=== PATIENT | male | born 2000 | race Asian ===

== ENCOUNTER 2020-11-06 03:42 | Inpatient (IN) | payer SELFPAY ==
[2020-11-06] MEDS ORDERED: fentaNYL Citrate/PF 50 MCG/ML (20ML VIAL) ONE (04:05)
[2020-11-06 04:22] LABS: #Basophils 0.1 10x3/uL (0.0-0.2); #Monocytes 0.8 10x3/uL (0.0-1.1); #Neutrophils 5.3 10x3/uL (1.5-8.4); %Basophils 0.5 % (0.0-2.0); %Eosinophils 0.3 % (0.0-6.0); %Lymphocytes 38.1 % (18.0-47.0); %Monocytes 8.1 % (0.0-10.0); %Neutrophils 52.8 % (40.0-75.0); Hemoglobin 14.2 g/dL (13.5-17.5); Mean Corpuscular Hemoglobin 28.8 pg (27.0-33.0); Mean Corpuscular Volume 84.8 fl (81.2-95.1); Mean Platelet Volume 10.8 fl (7.4-10.4); Platelet Count 200 10x3/uL (150-450); RBC Distribution Width 12.1 % (11.5-14.5); Red Blood Cell (RBC) Count 4.93 10x6/uL (4.32-5.72); White Blood Cell (WBC) Count 10.1 10x3/uL (3.5-10.5)
[2020-11-06 04:28] LABS: Acetaminophen Less than 6.0 mcg/mL (10.0-30.0); Alcohol 207 mg/dL (Less than 10); Salicylate Less than 8.0 mg/dL (15.0-30.0)
[2020-11-06 04:29] LABS: ALT (SGPT) 23 U/L (8-55); AST (SGOT) 27 U/L (5-34); Albumin 4.6 g/dL (3.5-5.0); Alkaline Phosphatase 82 U/L (50-130); Anion Gap 16 mmol/L (10-20); BUN (Urea Nitrogen) 19 mg/dL (8.9-20.6); Bilirubin, Total 0.3 mg/dL (0.2-1.2); Calc. Creatinine Clearance 0 mL/min (70-130); Calcium 8.7 mg/dL (7.8-10.44); Carbon Dioxide 21 mmol/L (22-29); Chloride 102 mmol/L (98-107); Globulin 2.4 g/dL (2.4-3.5); Glucose 141 mg/dL (70-105); Potassium 3.3 mmol/L (3.5-5.1); Sodium 136 mmol/L (136-145)
[2020-11-06 04:55] LABS: Actual Bicarbonate (HCO3a) 22.8 mEq/L (22-28); Base Excess (BEa) -2.2 mEq/L (-2.0 to +3.0); CO2 Tension 39.8 mmHg (35.0-45.0); Calcium, Ionized (arterial) 1.13 mmol/L (1.12-1.30); Carboxyhemoglobin (COHb) 0.1 gm% (0.0-3.0); Hemoglobin (Hb) 13.6 g/dL (14.0-18.0); O2 Tension (PaO2), arterial 513.5 mmHg (80.0-100.0); Puncture Site RRA; pH, Arterial 7.38 (7.35-7.45)
[2020-11-06] MEDS ORDERED: Boostrix 0.5 ML (Tdap) VIAL ONE (05:27)
[2020-11-06] MEDS ORDERED: Acetaminophen 325 MG TAB PO PRN (05:31)
[2020-11-06] MEDS ORDERED: Ondansetron PF 4 MG/2 ML Vial IVP PRN (05:31)
[2020-11-06] MEDS ORDERED: Lactated Ringer's 1,000 ML IV SCH (05:45)
[2020-11-06] MEDS ORDERED: NS 0.9% w/ 40 MEQ KCL 1,000 ML IV SCH (05:45)
[2020-11-06 05:57] LABS: CK (CPK) 1070 U/L (30-200); Magnesium 2.2 mg/dL (1.7-2.2); Phosphorus 3.2 mg/dL (2.3-4.7)
[2020-11-06 06:37] LABS: SARS-CoV-2 NAA Rapid Test Not Detected (NotDetected)
[2020-11-06 06:43] LABS: Bilirubin Neg (Negative); Blood, Urine Negative (Negative); Clarity Clear (Clear); Glucose, Urine (Dipstick) Normal (Negative); Ketone, Urine 5 mg/dL (Negative); Leukocyte Negative (Negative); Nitrite Negative (Negative); Protein, Urine (Dipstick) 15 mg/dl (Neg-Trace); Specific Gravity, Urine 1.025 (1.002-1.036); Urobilinogen Normal mg/dL (Less than 2)
[2020-11-06 06:52] LABS: Amphetamine Not Detected (NotDetected); Barbiturates Screen Not Detected (NotDetected); Benzodiazepine Screen Not Detected (NotDetected); Cocaine Metabolite Screen Not Detected (NotDetected); Methadone Not Detected (NotDetected); Methamphetamine Not Detected (NotDetected); Opiate Screen Not Detected (NotDetected); Oxycodone Screen Not Detected (NotDetected); Phencyclidine (PCP) Not Detected (NotDetected); THC/Cannabinoid Screen Not Detected (NotDetected); Tricyclic Screen Not Detected (NotDetected)
[2020-11-06] MEDS: Fentanyl CADD 100 ML ONE ×2 (06:52→07:00)
[2020-11-06 07:22] VITALS: BMI 20.5
[2020-11-06] MEDS ORDERED: Potassium Chloride 20 MEQ in Premix Bag 1 BAG IVPB SCH (07:30)
[2020-11-06] MEDS: NS 0.9% w/ 40 MEQ KCL 1,000 ML IV SCH ×2 (07:56→16:20)
[2020-11-06] MEDS: Famotidine/PF 20 mg/2ml Vial SLOW IVP SCH ×2 (07:56→20:58)
[2020-11-06] MEDS: Potassium Chloride 10 MEQ in Premix Bag 1 BAG IVPB SCH (07:58)
[2020-11-06] MEDS ORDERED: Dexmedetomidine In 0.9 % NaCl 100 ML IVPB SCH (12:15)
[2020-11-06] MEDS ORDERED: Dextrose 5 %-0.45 % NaCl 1,000 ML ONE (20:56)
[2020-11-06] MEDS ORDERED: Enoxaparin Sodium 40 MG/0.4 ML SYRINGE SC SCH (21:00)
[2020-11-06] MEDS ORDERED: Multivitamins, Adult 10 ML, Folic Acid 1 MG in Dextrose 5 %-0.45 % NaCl 1,000 ML IV SCH (21:00)
[2020-11-06] MEDS ORDERED: Thiamine HCl 200 MG/2 ML VIAL SLOW IVP SCH (21:00)
[2020-11-07] MEDS ORDERED: Thiamine HCl 200 MG/2 ML VIAL ONE (01:45)
[2020-11-07] MEDS ORDERED: Multivit, Adult Inj 10 ML VIAL ONE (01:46)
[2020-11-07] MEDS: NS 0.9% w/ 40 MEQ KCL 1,000 ML IV SCH (04:17)
[2020-11-07 06:01] LABS: #Monocytes 1.3 10x3/uL (0.0-1.1); %Basophils 0.3 % (0.0-2.0); %Eosinophils 0.4 % (0.0-6.0); %Lymphocytes 24.2 % (18.0-47.0); %Monocytes 11.7 % (0.0-10.0); %Neutrophils 63.1 % (40.0-75.0); Anion Gap 12 mmol/L (10-20); BUN (Urea Nitrogen) 10 mg/dL (8.9-20.6); CK (CPK) 1035 U/L (30-200); Calc. Creatinine Clearance 96 mL/min (70-130); Calcium 8.7 mg/dL (7.8-10.44); Carbon Dioxide 25 mmol/L (22-29); Chloride 106 mmol/L (98-107); Glucose 100 mg/dL (70-105); Hemoglobin 13.8 g/dL (13.5-17.5); Mean Corpuscular HGB CONC 33.6 g/dL (32.0-36.0); Mean Corpuscular Hemoglobin 28.9 pg (27.0-33.0); Mean Platelet Volume 10.5 fl (7.4-10.4); Platelet Count 169 10x3/uL (150-450); Potassium 3.6 mmol/L (3.5-5.1); Red Blood Cell (RBC) Count 4.78 10x6/uL (4.32-5.72); Sodium 139 mmol/L (136-145); White Blood Cell (WBC) Count 11.1 10x3/uL (3.5-10.5)
[2020-11-07] MEDS: Famotidine/PF 20 mg/2ml Vial SLOW IVP SCH (09:43)
[2020-11-07 14:05] VITALS: BP 107/59; TEMP 98.2
== END 2020-11-07 13:44 | disposition home or self-care (01) | DRG 208 ==
LOC: CSHERS 03:42 → CSHIMCU 06:31 → CSHTELE 23:22
PROVIDERS: ADMIT Student in an Organized Health Care Education/Training Program; ATTEND Internal Medicine
PROC: 0BH17EZ Insertion of Endotracheal Airway into Trachea, Via Natural or Artificial Opening (ICD-10-PCS; principal; 2020-11-06)
PROC: 5A1935Z Respiratory Ventilation, Less than 24 Consecutive Hours (ICD-10-PCS; 2020-11-06)
DX: J96.01 Acute respiratory failure with hypoxia (principal); G93.41 Metabolic encephalopathy; F10.129 Alcohol abuse with intoxication, unspecified; E87.6 Hypokalemia; N28.9 Disorder of kidney and ureter, unspecified; R73.9 Hyperglycemia, unspecified; Y90.7 Blood alcohol level of 200-239 mg/100 ml; S00.81XA Abrasion of other part of head, initial encounter; W19.XXXA Unspecified fall, initial encounter; Z20.822 Contact with and (suspected) exposure to COVID-19
CPT/HCPCS: 31500; 36600; 51702; 70450; 70486; 71045; 72125; 80048; 80053; 80306; 80307; 81003; 82550; 82805; 83735; 84100; 85025; 90471; 90715; 93005; 94002; 94150; 96365; 99292; J1650; J3010; J3411; J3480; J7042; S0028; U0002